=== PATIENT | female | born 1970 | race Caucasian/White ===

== ENCOUNTER 2017-03-27 11:33 | Observation (INO) | payer OTHER, MEDICARE ==
[~2017-03-27] VITALS: Ht 162.6 cm; Wt 81.6 kg
[~2017-03-27 11:33] MED LIST: ACET-1079 PO; CALC500C3 PO; ERGO2000 PO; FERR-7 PO; MAGN400T23 PO; MET10T PO; NOR10T PO; SODB650T PO; ZINC50TA2 PO
[2017-03-27 12:24] LABS: Basophils # (auto) 0 uL; Basophils % (auto) 0.3 % (0.0-2.0); CONDITION Y; DEFINITIVE SEE PRINTOUT; Eosinophils # (auto) 0.1 uL; Eosinophils % (auto) 0.9 % (0.0-7.0); Hematocrit 25.4 % (36.0-46.0); Hemoglobin 7.9 g/dL (12.2-16.2); Lymphocytes # (auto) 1.6 uL; Lymphocytes % (auto) 14.7 % (10.0-50.0); Mean Corpuscular Hemoglobin 27.5 pg (28.0-32.0); Mean Corpuscular Hgb Conc. 31.1 g/dL (32.0-36.0); Mean Corpuscular Volume 88.4 fL (80.0-100.0); Mean Platelet Volume 6.2 fL (7.4-10.4); Monocytes # (auto) 1.1 uL; Monocytes % (auto) 9.7 % (0.0-12.0); Neutrophils # (auto) 8.2 uL; Neutrophils % (auto) 74.4 % (37.0-80.0); Platelet Count (auto) 726 10^3/uL (140-450); Red Cell Distribution Width 18.5 % (11.6-16.0)
[2017-03-27 12:43] LABS: Albumin 1.5 g/dL (3.4-5.0); Anion Gap 16 (5-15); Aspartate Aminotransferase 10 U/L (15-37); BUN/Creatinine Ratio 16.9; Blood Urea Nitrogen 66 mg/dL (7-18); Calcium 6.9 mg/dL (8.5-10.1); Chloride 117 mmol/L (98-107); GFR African American 16 mL/min; GFR Non-African American 13 mL/min; Glucose 84 mg/dL (74-106); Potassium 4.2 mmol/L (3.5-5.1); Sodium 140 mmol/L (136-145)
[2017-03-27 12:48] LABS: Alkaline Phosphatase 167 U/L (45-117); Bilirubin, Total 0.2 mg/dL (0.2-1.0); Total Protein 6.3 g/dL (6.4-8.2)
[2017-03-27 13:09] LABS: Carbon Dioxide 7 mmol/L (21-32)
[2017-03-27] MEDS ORDERED: SODIUM CHLORIDE 0.9% 1,000 ML IVB ONE (13:39)
[2017-03-27] MEDS ORDERED: HYDROmorphone HCL 2 MG/ML VL IV ONE (13:45)
[2017-03-27] MEDS ORDERED: ONDANSETRON HCL 4 MG/2 ML VIAL IV ONE (13:45)
[2017-03-27] MEDS ORDERED: cefTRIAXone 1GM/50ML D5W 50 ML IV ONE (13:45)
[2017-03-27 14:17] LABS: INR 1.09 (0.9-1.15); Partial Thromboplastin Time 36.6 sec (22.64-33.71); Prothrombin Time 11.9 sec (9.37-12.3)
[2017-03-27 14:34] LABS: Urine Bilirubin Negative (Negative); Urine Blood Negative /uL (Negative); Urine Color Yellow (Yellow); Urine Glucose Normal (Normal); Urine Ketone Negative (Negative); Urine Nitrite Negative (Negative); Urine RBC 3 /hpf (0 - 4); Urine Squamous Epithelial Cell FEW /hpf (<5); Urine Urobilinogen Normal (Negative); Urine pH 8.5 (5.0-8.0)
[2017-03-27] MEDS ORDERED: SODIUM CHLORIDE 0.9% 1,000 ML IV ONE (16:30)
[2017-03-27 19:44] VITALS: BP 100/48
[2017-03-27] MEDS ORDERED: HYDROcodone-ACET 10/325MG TAB PO ONE (20:15)
== END 2017-03-27 20:11 | disposition home or self-care (01) | DRG 592 ==
LOC: EDBD 11:33 → ER 11:39 → OVERFLOW 13:43 → ER 20:11
PROVIDERS: ADMIT Family Medicine; ATTEND Family Medicine
DX: L89.324 Pressure ulcer of left buttock, stage 4 (principal); N17.9 Acute kidney failure, unspecified; E11.22 Type 2 diabetes mellitus with diabetic chronic kidney disease; M86.9 Osteomyelitis, unspecified; E83.42 Hypomagnesemia; N39.0 Urinary tract infection, site not specified; L89.314 Pressure ulcer of right buttock, stage 4; L89.154 Pressure ulcer of sacral region, stage 4; D64.9 Anemia, unspecified; I12.9 Hypertensive chronic kidney disease with stage 1 through stage 4 chronic kidney disease, or unspecified chronic kidney disease; N18.9 Chronic kidney disease, unspecified; F32.9 Major depressive disorder, single episode, unspecified; F41.9 Anxiety disorder, unspecified; M47.9 Spondylosis, unspecified; M48.06 Spinal stenosis, lumbar region; Q05.9 Spina bifida, unspecified; Z93.6 Other artificial openings of urinary tract status; Z82.49 Family history of ischemic heart disease and other diseases of the circulatory system; Z83.3 Family history of diabetes mellitus; Z93.3 Colostomy status; Z99.3 Dependence on wheelchair; Z74.01 Bed confinement status
CPT/HCPCS: 36415; 71010; 72131; 80053; 81001; 82962; 83605; 83735; 84484; 85025; 85610; 85730; 87040; 87077; 87086; 87088; 87186; 93005; 96361; 96365; 96375; 99285; G0378; J0696; J1170; J2405

== ENCOUNTER 2017-07-20 11:40 | Inpatient (IN) | payer OTHER, MEDICARE, MEDICAID ==
[~2017-07-20] VITALS: Ht 152.4 cm; Wt 116.3 kg
[2017-07-20] MEDS ORDERED: SODIUM CHLORIDE 0.9% 1,000 ML IV ONE ×3 (14:27→23:00)
[2017-07-20] MEDS ORDERED: ONDANSETRON HCL 4 MG/2 ML VIAL IV ONE (14:30)
[2017-07-20 15:48] LABS: Albumin 1.1 g/dL (3.4-5.0); Alkaline Phosphatase 235 U/L (45-117); Anion Gap 16 (5-15); Aspartate Aminotransferase 14 U/L (15-37); Bilirubin, Total 0.3 mg/dL (0.2-1.0); Carbon Dioxide 14 mmol/L (21-32); Chloride 99 mmol/L (98-107); GFR African American 10 mL/min; GFR Non-African American 8 mL/min; Glucose 84 mg/dL (74-106); Sodium 129 mmol/L (136-145); Total Protein 5.8 g/dL (6.4-8.2)
[2017-07-20 15:53] LABS: Blood Urea Nitrogen 97 mg/dL (7-18); Calcium 5.5 mg/dL (8.5-10.1)
[2017-07-20] MEDS ORDERED: CALCIUM CHL 100MG/ML 1,000 MG in D5W 5% 100 ML IV ONE (16:00)
[2017-07-20] MEDS ORDERED: SODIUM BICARBONATE 8.4 % INJ 50ML VIAL IV ONE (16:00)
[2017-07-20] MEDS ORDERED: MEPERIDINE HCL (50 MG/ML) 1 ML VIAL IV ONE (17:00)
[2017-07-20 18:39] LABS: Basophils # (auto) 0 uL; Basophils % (auto) 0.4 % (0.0-2.0); Eosinophils # (auto) 0 uL; Eosinophils % (auto) 0.2 % (0.0-7.0); Hematocrit 24.3 % (36.0-46.0); Hemoglobin 7.1 g/dL (12.2-16.2); Lymphocytes # (auto) 1.5 uL; Lymphocytes % (auto) 10.8 % (10.0-50.0); Mean Corpuscular Hemoglobin 28.3 pg (28.0-32.0); Mean Corpuscular Hgb Conc. 29.1 g/dL (32.0-36.0); Mean Corpuscular Volume 97.2 fL (80.0-100.0); Monocytes # (auto) 0.4 uL; Monocytes % (auto) 2.9 % (0.0-12.0); Neutrophils # (auto) 11.5 uL; Neutrophils % (auto) 85.7 % (37.0-80.0); Nucleated Red Blood Cells % 0.2 %; Platelet Count (auto) 174 10^3/uL (140-450); Red Cell Distribution Width 16.7 % (11.8-14.3); White Blood Cell 13.4 10^3/uL (4.4-10.8)
[2017-07-20 20:30] LABS: BUN/Creatinine Ratio 15.4; Calcium 6.1 mg/dL (8.5-10.1); Potassium 5.5 mmol/L (3.5-5.1)
[2017-07-20 21:07] LABS: Anisocytosis Moderate; Ovalocytes FEW; Platelet Estimate Adequate
[2017-07-20 21:08] LABS: Tear Drop Cells FEW
[2017-07-20] MEDS ORDERED: NOREPINEPHRINE 8 MG/250ML KIT 250 ML IV ONE (21:56)
[2017-07-20] MEDS: NOREPINEPHRINE 8 MG/250ML KIT 250 ML IV SCH (22:11)
[2017-07-20] MEDS ORDERED: SODIUM POLYSTYRENE SULF 15GM/60ML SUSP PO ONE (22:45)
[2017-07-21 00:42] LABS: Urine Bilirubin Negative (Negative); Urine Blood TRACE /uL (Negative); Urine Color Yellow (Yellow); Urine Glucose Normal (Normal); Urine Hyaline Cast FEW /lpf (0 - 2); Urine Ketone Negative (Negative); Urine Mucus FEW (None Seen); Urine Nitrite Negative (Negative); Urine RBC 38 /hpf (0 - 4); Urine Squamous Epithelial Cell FEW /hpf (<5); Urine Urobilinogen Normal (Negative)
[2017-07-21 00:58] LABS: Temperature: 21.9 C (20.0-25.0)
[2017-07-21] MEDS ORDERED: SODIUM CHLORIDE 0.9% 1,000 ML IV ONE (02:00)
[2017-07-21] MEDS ORDERED: ACETAMINOPHEN 325 MG TAB PO ONE (03:30)
[2017-07-21] MEDS ORDERED: MORPHINE SULF INJ 2 MG/ML SYRINGE 1ML IV PRN (04:00)
[2017-07-21] MEDS ORDERED: NITROGLYCERIN 0.4 MG SL TAB SL PRN (04:00)
[2017-07-21] MEDS ORDERED: LINEZOLID 600MG/300ML 300 ML IV ONE ×2 (04:55→05:15)
[2017-07-21] MEDS ORDERED: NALBUPHINE HCL 10 MG/1ml INJECTION ONE (05:12)
[2017-07-21] MEDS ORDERED: NALBUPHINE HCL 10 MG/1ml INJECTION IV ONE ×2 (05:15→05:45)
[2017-07-21] MEDS ORDERED: HYDROcodone-ACET 5/325MG TAB PO PRN (05:15)
[2017-07-21] MEDS ORDERED: ONDANSETRON HCL 4 MG/2 ML VIAL ONE (05:30)
[2017-07-21] MEDS ORDERED: NOREPINEPHRINE 8 MG/250ML KIT 250 ML IV ONE (05:35)
[2017-07-21] MEDS ORDERED: LORazepam 2MG/ML-1ML VIAL IV ONE ×2 (05:45→07:00)
[2017-07-21] MEDS ORDERED: ACETAMINOPHEN 325 MG TAB PO PRN (05:45)
[2017-07-21] MEDS ORDERED: ONDANSETRON HCL 4 MG/2 ML VIAL IV ONE (05:45)
[2017-07-21] MEDS ORDERED: LORazepam 2MG/ML-1ML VIAL ONE (06:01)
[2017-07-21] MEDS ORDERED: ETOMIDATE (2MG/ML) 20ML VIAL IV ONE ×2 (06:07→07:15)
[2017-07-21 06:56] VITALS: BP 79/58
[2017-07-21 07:11] VITALS: BP 102/51
[2017-07-21] MEDS: LEVOTHYROXINE SODIUM 88 MCG TAB PO SCH (07:15)
[2017-07-21 08:51] VITALS: BP 95/60
[2017-07-21] MEDS: LINEZOLID 600MG/300ML 300 ML IV SCH ×2 (08:55→22:00)
[2017-07-21 09:34] LABS: Hematocrit 27.8 % (36.0-46.0); Hemoglobin 8.4 g/dL (12.2-16.2); Mean Corpuscular Hgb Conc. 30.3 g/dL (32.0-36.0); Mean Corpuscular Volume 92.4 fL (80.0-100.0); Mean Platelet Volume 7.1 fL (6.9-10.8); Platelet Count (auto) 334 10^3/uL (140-450); Red Cell Distribution Width 16.2 % (11.8-14.3); White Blood Cell 28.3 10^3/uL (4.4-10.8)
[2017-07-21 09:45] LABS: Metamyelocytes % 0; Myelocytes % 0; Promyelocytes % 0; Reactive Lymphocytes 0
[2017-07-21 09:58] LABS: Albumin 1.1 g/dL (3.4-5.0); BUN/Creatinine Ratio 16.6; Bilirubin, Total 0.4 mg/dL (0.2-1.0); Total Protein 5.5 g/dL (6.4-8.2)
[2017-07-21 10:05] LABS: Calcium 5.9 mg/dL (8.5-10.1)
[2017-07-21 10:08] LABS: Potassium 5.6 mmol/L (3.5-5.1)
[2017-07-21 11:09] LABS: Anisocytosis Slight; Platelet Estimate Adequate
[2017-07-21 11:10] LABS: Hypochromia Slight; Poikilocytosis Slight
[2017-07-21] MEDS ORDERED: SODIUM BICARBONATE 8.4 % INJ 50ML VIAL IV ONE ×2 (11:17→19:16)
[2017-07-21] MEDS: SODIUM BICARBONATE 50ML VIAL 50 ML in D5W/SOD CHL 0.45% 1,000 ML IV SCH ×2 (11:38→19:24)
[2017-07-21] MEDS: MAGNESIUM SULFATE 1GM/100ML 100 ML IV SCH (11:42)
[2017-07-21] MEDS: HYDROmorphone HCL 2 MG TAB PO PRN ×2 (12:20→18:30)
[2017-07-21] MEDS: ALBUMIN 25% 100 ML IV SCH ×2 (14:20→22:00)
[2017-07-21] MEDS: SODIUM CHLORIDE 0.9% 1,000 ML IV SCH (20:30)
[2017-07-21 21:04] LABS: Eosinophils # (auto) 0 uL; Eosinophils % (auto) 0.3 % (0.0-7.0); Lymphocytes # (auto) 1.8 uL; Lymphocytes % (auto) 12.4 % (10.0-50.0); Monocytes # (auto) 0.5 uL
[2017-07-21 21:06] LABS: Basophils # (auto) 0 uL; Basophils % (auto) 0.2 % (0.0-2.0); Hematocrit 20.9 % (36.0-46.0); Mean Corpuscular Hgb Conc. 31.9 g/dL (32.0-36.0); Mean Corpuscular Volume 90.7 fL (80.0-100.0); Mean Platelet Volume 6.8 fL (6.9-10.8); Monocytes % (auto) 3.3 % (0.0-12.0); Neutrophils # (auto) 12.1 uL; Neutrophils % (auto) 83.8 % (37.0-80.0); Nucleated Red Blood Cells % 0.1 %; Platelet Count (auto) 177 10^3/uL (140-450); White Blood Cell 14.5 10^3/uL (4.4-10.8)
[2017-07-21] MEDS ORDERED: DEXTROSE (50%) 50ML SYRG IV PRN (21:15)
[2017-07-21 21:24] LABS: Lactic Acid w/Reflex 3.6 mmol/L (0.4-2.0)
[2017-07-21 21:25] LABS: BUN/Creatinine Ratio 16.2; Calcium 6.1 mg/dL (8.5-10.1); Potassium 4.3 mmol/L (3.5-5.1)
[2017-07-21 21:39] LABS: Hemoglobin 6.7 g/dL (12.2-16.2)
[2017-07-21 21:44] LABS: REFLEX LACTIC ACID YES OR NO YES
[2017-07-21 21:45] LABS: Platelet Estimate Adequate
[2017-07-21 21:46] LABS: Anisocytosis Moderate; Burr Cells FEW; Hypochromia Moderate; Ovalocytes FEW; Tear Drop Cells FEW
[2017-07-21] MEDS: NOREPINEPHRINE 8 MG/250ML KIT 250 ML IV SCH (21:58)
[2017-07-22 00:20] VITALS: BP 105/56
[2017-07-22 00:35] VITALS: BP 108/59
[2017-07-22 02:45] VITALS: BP 100/56
[2017-07-22 03:08] VITALS: BP 79/51
[2017-07-22] MEDS ORDERED: SODIUM BICARBONATE 8.4 % INJ 50ML VIAL IV ONE ×2 (03:10→21:15)
[2017-07-22 03:27] VITALS: BP 98/46
[2017-07-22] MEDS: SODIUM BICARBONATE 50ML VIAL 50 ML in D5W/SOD CHL 0.45% 1,000 ML IV SCH ×3 (03:48→20:36)
[2017-07-22 05:08] VITALS: BP 100/57
[2017-07-22] MEDS: ALBUMIN 25% 100 ML IV SCH ×3 (06:00→22:33)
[2017-07-22] MEDS: ACCU-CHEK COMFORT CURVE STRIP VI SCH ×4 (06:00→18:02)
[2017-07-22] MEDS: SODIUM CHLORIDE 0.9% 1,000 ML IV SCH ×2 (06:41→16:31)
[2017-07-22] MEDS: InsuLIN REG 1unit/0.01ml Soln (100units/ml) SC SCH ×4 (06:52→18:02)
[2017-07-22] MEDS: LEVOTHYROXINE SODIUM 88 MCG TAB PO SCH ×2 (07:30→08:05)
[2017-07-22 09:45] LABS: Basophils # (auto) 0 uL; Basophils % (auto) 0.1 % (0.0-2.0); Eosinophils # (auto) 0.1 uL; Eosinophils % (auto) 0.5 % (0.0-7.0); Hematocrit 27.8 % (36.0-46.0); Hemoglobin 8.9 g/dL (12.2-16.2); Lymphocytes # (auto) 2.2 uL; Lymphocytes % (auto) 13.6 % (10.0-50.0); Mean Corpuscular Hemoglobin 28.9 pg (28.0-32.0); Mean Corpuscular Hgb Conc. 32.2 g/dL (32.0-36.0); Mean Corpuscular Volume 89.6 fL (80.0-100.0); Mean Platelet Volume 6.7 fL (6.9-10.8); Monocytes # (auto) 0.5 uL; Monocytes % (auto) 2.9 % (0.0-12.0); Neutrophils # (auto) 13.3 uL; Neutrophils % (auto) 82.9 % (37.0-80.0); Platelet Count (auto) 140 10^3/uL (140-450); White Blood Cell 16.1 10^3/uL (4.4-10.8)
[2017-07-22] MEDS: MAGNESIUM SULFATE 1GM/100ML 100 ML IV SCH (09:55)
[2017-07-22] MEDS: LINEZOLID 600MG/300ML 300 ML IV SCH ×2 (09:55→22:33)
[2017-07-22 10:11] LABS: Albumin 2.2 g/dL (3.4-5.0); BUN/Creatinine Ratio 16.3; Bilirubin, Total 1.4 mg/dL (0.2-1.0); Total Protein 5.2 g/dL (6.4-8.2)
[2017-07-22 10:27] LABS: Calcium 5.8 mg/dL (8.5-10.1)
[2017-07-22] MEDS ORDERED: cefTRIAXone 1GM/10ml IVPUSH 10 ML IV ONE (10:45)
[2017-07-22] MEDS ORDERED: CALCIUM GLUC 4.65meq/50ml D5AE 50 ML IV ONE (10:45)
[2017-07-22] MEDS: Boost Glucose Control 8 Ounces PO SCH ×3 (12:00→22:00)
[2017-07-22] MEDS: HYDROmorphone HCL 2 MG TAB PO PRN ×2 (13:00→20:19)
[2017-07-22] MEDS ORDERED: SODIUM BICARBONATE 8.4% INJ 50ML SYRINGE ONE (14:54)
[2017-07-22] MEDS ORDERED: SODIUM CHLORIDE 0.9% 1,000 ML IV ONE (18:15)
[2017-07-22 20:24] LABS: Allen Test Yes; Base Excess -14.5 mmol/L (-2.0-2.0); Blood 02Sat 96.3 % (96-100); Blood COHb 0.3 % (0.5-1.5); Blood MetHb 0.3 % (0.0-1.5); HCO3 10.1 mmol/L (22-26.0); HHb 3.7 % (0.0-5.0); MODE ROOM AIR; O2Hb 95.7 % (94.0-97.0); PCO2 21.1 mmHg (35.0-45.0); PCO2(T) 20.8 mmHg (35.0-45.0); PO2 99.9 mmHg (80.0-100.0); PO2(T) 98.1 mmHg (80.0-100.0); Room 1015-ERT; Sample Type Arterial; pH 7.297 (7.350-7.450)
[2017-07-22] MEDS: NOREPINEPHRINE 8 MG/250ML KIT 250 ML IV SCH (21:01)
[2017-07-22 21:22] LABS: Albumin 2.2 g/dL (3.4-5.0); BUN/Creatinine Ratio 16.4; Potassium 3.7 mmol/L (3.5-5.1)
[2017-07-22 21:24] LABS: Bilirubin, Total 0.6 mg/dL (0.2-1.0); Total Protein 5.1 g/dL (6.4-8.2)
[2017-07-23] MEDS: InsuLIN REG 1unit/0.01ml Soln (100units/ml) SC SCH ×4 (00:03→17:48)
[2017-07-23] MEDS: ACCU-CHEK COMFORT CURVE STRIP VI SCH ×4 (00:03→16:49)
[2017-07-23] MEDS: NOREPINEPHRINE 8 MG/250ML KIT 250 ML IV SCH ×3 (01:40→21:44)
[2017-07-23] MEDS ORDERED: SODIUM BICARBONATE 8.4% INJ 50ML SYRINGE ONE (01:50)
[2017-07-23] MEDS: ONDANSETRON HCL 4 MG/2 ML VIAL IV PRN ×5 (02:08→20:50)
[2017-07-23] MEDS: SODIUM BICARBONATE 50ML VIAL 50 ML in D5W/SOD CHL 0.45% 1,000 ML IV SCH ×3 (02:09→20:59)
[2017-07-23] MEDS: SODIUM CHLORIDE 0.9% 1,000 ML IV SCH ×3 (02:45→21:30)
[2017-07-23 02:50] LABS: Magnesium 1.5 mg/dL (1.6-2.6)
[2017-07-23] MEDS ORDERED: ENOXAPARIN SOD 100 MG/1 ML SYRINGE SC ONE ×2 (03:30→06:45)
[2017-07-23 05:10] LABS: Basophils # (auto) 0 uL; Basophils % (auto) 0.2 % (0.0-2.0); Eosinophils # (auto) 0.1 uL; Eosinophils % (auto) 0.4 % (0.0-7.0); Hematocrit 29.1 % (36.0-46.0); Hemoglobin 9.4 g/dL (12.2-16.2); Lymphocytes # (auto) 1.5 uL; Lymphocytes % (auto) 8.6 % (10.0-50.0); Mean Corpuscular Hemoglobin 28.8 pg (28.0-32.0); Mean Corpuscular Hgb Conc. 32.2 g/dL (32.0-36.0); Mean Corpuscular Volume 89.4 fL (80.0-100.0); Mean Platelet Volume 7.3 fL (6.9-10.8); Monocytes # (auto) 0.7 uL; Monocytes % (auto) 3.7 % (0.0-12.0); Neutrophils # (auto) 15.4 uL; Neutrophils % (auto) 87.1 % (37.0-80.0); Nucleated Red Blood Cells % 0.1 %; Platelet Count (auto) 115 10^3/uL (140-450); Red Cell Distribution Width 16.6 % (11.8-14.3); White Blood Cell 17.6 10^3/uL (4.4-10.8)
[2017-07-23] MEDS: HYDROmorphone HCL 2 MG TAB PO PRN (05:20)
[2017-07-23 05:31] LABS: Albumin 2.6 g/dL (3.4-5.0); BUN/Creatinine Ratio 17.5; Bilirubin, Total 0.8 mg/dL (0.2-1.0); Calcium 6.2 mg/dL (8.5-10.1); Potassium 3.4 mmol/L (3.5-5.1); Total Protein 5.2 g/dL (6.4-8.2)
[2017-07-23] MEDS: Boost Glucose Control 8 Ounces PO SCH ×4 (06:00→21:44)
[2017-07-23] MEDS: ALBUMIN 25% 100 ML IV SCH (06:28)
[2017-07-23] MEDS: LEVOTHYROXINE SODIUM 88 MCG TAB PO SCH (08:00)
[2017-07-23] MEDS: cefTRIAXone 1GM/10ml IVPUSH 10 ML IV SCH (09:22)
[2017-07-23] MEDS: MAGNESIUM SULFATE 1GM/100ML 100 ML IV SCH ×3 (10:00→14:45)
[2017-07-23] MEDS ORDERED: POTASSIUM CHL 20MEQ/50ML 50 ML IV SCH (11:15)
[2017-07-23] MEDS: LINEZOLID 600MG/300ML 300 ML IV SCH ×2 (12:00→21:43)
[2017-07-23] MEDS: ASPirin-EC 81 mg tab PO SCH (12:00)
[2017-07-23] MEDS ORDERED: POTASSIUM CHL 20 Meq TABLET PO ONE (12:15)
[2017-07-23] MEDS ORDERED: POTASSIUM CHL 20MEQ/50ML 50 ML IV ONE (12:30)
[2017-07-23] MEDS: CALCIUM ACETATE 667 MG CAP PO SCH (18:16)
[2017-07-23] MEDS ORDERED: ALPRAZolam 0.5 MG TAB PO ONE (21:45)
[2017-07-23] MEDS: METOCLOPRAMIDE HCL 5MG/ml INJ 2ml VIAL IV PRN (21:59)
[2017-07-24] MEDS: InsuLIN REG 1unit/0.01ml Soln (100units/ml) SC SCH ×4 (00:30→18:48)
[2017-07-24] MEDS: NOREPINEPHRINE 8 MG/250ML KIT 250 ML IV SCH ×2 (02:39→14:52)
[2017-07-24] MEDS: ACCU-CHEK COMFORT CURVE STRIP VI SCH ×4 (05:44→18:41)
[2017-07-24] MEDS: Boost Glucose Control 8 Ounces PO SCH ×4 (06:00→21:34)
[2017-07-24] MEDS: SODIUM BICARBONATE 50ML VIAL 50 ML in D5W/SOD CHL 0.45% 1,000 ML IV SCH ×3 (06:02→21:33)
[2017-07-24] MEDS: ALPRAZolam 0.5 MG TAB PO PRN ×2 (06:03→22:27)
[2017-07-24] MEDS: METOCLOPRAMIDE HCL 5MG/ml INJ 2ml VIAL IV PRN (06:03)
[2017-07-24 06:25] LABS: Basophils # (auto) 0 uL; Basophils % (auto) 0.3 % (0.0-2.0); Eosinophils # (auto) 0.1 uL; Eosinophils % (auto) 0.6 % (0.0-7.0); Hematocrit 29.2 % (36.0-46.0); Hemoglobin 9.3 g/dL (12.2-16.2); Lymphocytes % (auto) 14.7 % (10.0-50.0); Mean Corpuscular Hemoglobin 28.8 pg (28.0-32.0); Mean Corpuscular Volume 90.1 fL (80.0-100.0); Mean Platelet Volume 7.9 fL (6.9-10.8); Monocytes # (auto) 0.6 uL; Monocytes % (auto) 4.5 % (0.0-12.0); Neutrophils # (auto) 10.7 uL; Neutrophils % (auto) 79.9 % (37.0-80.0); Platelet Count (auto) 69 10^3/uL (140-450); Red Cell Distribution Width 16.5 % (11.8-14.3); White Blood Cell 13.4 10^3/uL (4.4-10.8)
[2017-07-24] MEDS: LEVOTHYROXINE SODIUM 88 MCG TAB PO SCH (06:50)
[2017-07-24 06:57] LABS: Albumin 2.2 g/dL (3.4-5.0); BUN/Creatinine Ratio 16.3; Bilirubin, Total 0.8 mg/dL (0.2-1.0); Calcium 6.8 mg/dL (8.5-10.1); Magnesium 1.7 mg/dL (1.6-2.6); Potassium 3.1 mmol/L (3.5-5.1); Total Protein 4.6 g/dL (6.4-8.2); Uric Acid 6.5 mg/dL (2.6-6.0)
[2017-07-24] MEDS: HYDROcodone-ACET 5/325MG TAB PO PRN ×2 (07:32→14:52)
[2017-07-24] MEDS: CALCIUM ACETATE 667 MG CAP PO SCH ×3 (08:46→18:00)
[2017-07-24] MEDS: SODIUM CHLORIDE 0.9% 1,000 ML IV SCH ×2 (08:46→20:14)
[2017-07-24] MEDS: cefTRIAXone 1GM/10ml IVPUSH 10 ML IV SCH (08:47)
[2017-07-24] MEDS: MAGNESIUM SULFATE 1GM/100ML 100 ML IV SCH ×3 (08:54→13:24)
[2017-07-24] MEDS: LINEZOLID 600MG/300ML 300 ML IV SCH ×2 (10:05→21:58)
[2017-07-24] MEDS: ASPirin-EC 81 mg tab PO SCH (10:05)
[2017-07-24] MEDS ORDERED: POTASSIUM CHL 20 Meq TABLET PO ONE ×2 (12:00→21:45)
[2017-07-24] MEDS: HYDROmorphone HCL 2 MG TAB PO PRN (12:29)
[2017-07-24] MEDS ORDERED: POTASSIUM CHLORIDE 40 MEQ, LIDOCAINE 1% (LOCAL ANESTH.) 4 ML in SODIUM CHL 0.9% 250 ML IV ONE (14:00)
[2017-07-24] MEDS ORDERED: SODIUM CHLORIDE 0.9% 250 ML IV ONE (17:00)
[2017-07-24] MEDS: SODIUM CHLORIDE 0.9% 250 ML IV SCH ×7 (17:17→21:30)
[2017-07-24] MEDS ORDERED: SODIUM BICARBONATE 8.4 % INJ 50ML VIAL IV ONE (20:54)
[2017-07-24] MEDS: NYSTATIN TOPICAL POWDER 15GM TOP SCH (22:27)
[2017-07-25] MEDS: ACCU-CHEK COMFORT CURVE STRIP VI SCH ×5 (00:15→23:45)
[2017-07-25] MEDS: InsuLIN REG 1unit/0.01ml Soln (100units/ml) SC SCH ×5 (00:21→23:46)
[2017-07-25] MEDS: HYDROmorphone HCL 2 MG TAB PO PRN ×2 (00:21→04:26)
[2017-07-25] MEDS ORDERED: ONDANSETRON HCL 4 MG/2 ML VIAL ONE (03:26)
[2017-07-25] MEDS: SODIUM CHLORIDE 0.9% 1,000 ML IV SCH ×4 (03:38→22:41)
[2017-07-25] MEDS ORDERED: SODIUM BICARBONATE 8.4 % INJ 50ML VIAL IV ONE (03:48)
[2017-07-25] MEDS: HYDROcodone-ACET 5/325MG TAB PO PRN (04:23)
[2017-07-25 04:44] LABS: Basophils # (auto) 0.1 uL; Eosinophils # (auto) 0.2 uL; Monocytes # (auto) 0.7 uL; Monocytes % (auto) 4.6 % (0.0-12.0)
[2017-07-25 04:47] LABS: Basophils % (auto) 0.3 % (0.0-2.0); Hematocrit 30.3 % (36.0-46.0); Hemoglobin 9.6 g/dL (12.2-16.2); Lymphocytes # (auto) 2.4 uL; Mean Corpuscular Hemoglobin 28.7 pg (28.0-32.0); Mean Corpuscular Hgb Conc. 31.8 g/dL (32.0-36.0); Mean Corpuscular Volume 90.1 fL (80.0-100.0); Neutrophils # (auto) 12.6 uL; Neutrophils % (auto) 79.1 % (37.0-80.0); Platelet Count (auto) 32 10^3/uL (140-450); Red Cell Distribution Width 16.4 % (11.8-14.3); White Blood Cell 15.9 10^3/uL (4.4-10.8)
[2017-07-25 05:00] LABS: BUN/Creatinine Ratio 15.8; Calcium 6.9 mg/dL (8.5-10.1); Potassium 3.7 mmol/L (3.5-5.1)
[2017-07-25] MEDS ORDERED: TEMAZEPAM 15 MG CAP PO ONE (05:30)
[2017-07-25] MEDS: Boost Glucose Control 8 Ounces PO SCH ×4 (06:00→22:00)
[2017-07-25] MEDS: SODIUM BICARBONATE 50ML VIAL 50 ML in D5W/SOD CHL 0.45% 1,000 ML IV SCH (06:07)
[2017-07-25] MEDS: LEVOTHYROXINE SODIUM 88 MCG TAB PO SCH (06:51)
[2017-07-25] MEDS ORDERED: POTA20TA53 PO (08:37)
[2017-07-25] MEDS ORDERED: HYDR2TAB29 PO (08:38)
[2017-07-25] MEDS ORDERED: ONDA4TAB5 PO (08:38)
[2017-07-25] MEDS: METOCLOPRAMIDE HCL 5MG/ml INJ 2ml VIAL IV PRN ×3 (08:45→23:36)
[2017-07-25] MEDS: cefTRIAXone 1GM/10ml IVPUSH 10 ML IV SCH (08:58)
[2017-07-25] MEDS: ALPRAZolam 0.5 MG TAB PO PRN (09:21)
[2017-07-25] MEDS: CALCIUM ACETATE 667 MG CAP PO SCH ×3 (09:21→18:19)
[2017-07-25] MEDS: MAGNESIUM SULFATE 1GM/100ML 100 ML IV SCH (10:28)
[2017-07-25] MEDS: LINEZOLID 600MG/300ML 300 ML IV SCH ×2 (11:10→22:00)
[2017-07-25] MEDS: ASPirin-EC 81 mg tab PO SCH (11:15)
[2017-07-25] MEDS: POTASSIUM CHL 20 Meq TABLET PO SCH (11:15)
[2017-07-25] MEDS: NYSTATIN TOPICAL POWDER 15GM TOP SCH ×2 (11:16→22:00)
[2017-07-25] MEDS: ALBUMIN 25% 100 ML IV SCH ×4 (11:38→22:59)
[2017-07-25] MEDS ORDERED: POTASSIUM CHL 20 Meq TABLET PO ONE (13:00)
[2017-07-25 14:06] LABS: Vitamin D 25-Hydroxy 7.2 ng/mL (.); Vitamin D-2 25-Hydroxy 3.8 ng/mL (.)
[2017-07-25] MEDS ORDERED: ALBUMIN 25% 100 ML IV SCH (17:00)
[2017-07-25] MEDS: MEROPENEM 1GM IVPB 100 ML IV SCH (18:19)
[2017-07-25] MEDS: NOREPINEPHRINE 8 MG/250ML KIT 250 ML IV SCH (21:59)
[2017-07-26 04:06] LABS: Basophils # (auto) 0.1 uL; Eosinophils # (auto) 0.1 uL; Eosinophils % (auto) 1.3 % (0.0-7.0); Hemoglobin 7.4 g/dL (12.2-16.2); Monocytes # (auto) 0.3 uL
[2017-07-26 04:09] LABS: Basophils % (auto) 0.8 % (0.0-2.0); Hematocrit 22.7 % (36.0-46.0); Lymphocytes # (auto) 1.6 uL; Lymphocytes % (auto) 16.3 % (10.0-50.0); Mean Corpuscular Hemoglobin 29.3 pg (28.0-32.0); Mean Corpuscular Hgb Conc. 32.4 g/dL (32.0-36.0); Mean Corpuscular Volume 90.3 fL (80.0-100.0); Mean Platelet Volume 8.9 fL (6.9-10.8); Monocytes % (auto) 2.7 % (0.0-12.0); Neutrophils # (auto) 7.8 uL; Neutrophils % (auto) 78.9 % (37.0-80.0); White Blood Cell 9.9 10^3/uL (4.4-10.8)
[2017-07-26] MEDS ORDERED: VASOPRESSIN 20 UNIT/ML ONE ×2 (04:09→04:13)
[2017-07-26 04:34] LABS: Platelet Count (auto) 14 10^3/uL (140-450)
[2017-07-26 04:36] LABS: Magnesium 2.1 mg/dL (1.6-2.6); Phosphorus 4.4 mg/dL (2.5-4.90)
[2017-07-26] MEDS: VASOPRESSIN 50 UNITS in SODIUM CHL 0.9% 247.5 ML IV SCH ×2 (04:43→08:34)
[2017-07-26] MEDS: MEROPENEM 1GM IVPB 100 ML IV SCH ×2 (04:44→17:40)
[2017-07-26] MEDS: Boost Glucose Control 8 Ounces PO SCH ×3 (04:44→18:00)
[2017-07-26 04:54] LABS: Albumin 3.2 g/dL (3.4-5.0); BUN/Creatinine Ratio 15.5; Bilirubin, Total 1.2 mg/dL (0.2-1.0); Calcium 7.2 mg/dL (8.5-10.1); Potassium 4.4 mmol/L (3.5-5.1); Total Protein 4.9 g/dL (6.4-8.2)
[2017-07-26] MEDS: SODIUM CHLORIDE 0.9% 1,000 ML IV SCH ×2 (05:39→11:05)
[2017-07-26] MEDS: ASPirin-EC 81 mg tab PO SCH (05:41)
[2017-07-26] MEDS: HYDROmorphone HCL 2 MG TAB PO PRN ×2 (05:53→11:47)
[2017-07-26] MEDS: ALPRAZolam 0.5 MG TAB PO PRN ×2 (05:53→13:45)
[2017-07-26] MEDS: ACCU-CHEK COMFORT CURVE STRIP VI SCH ×3 (05:58→18:17)
[2017-07-26] MEDS: InsuLIN REG 1unit/0.01ml Soln (100units/ml) SC SCH ×3 (05:59→18:17)
[2017-07-26] MEDS: ALBUMIN 25% 100 ML IV SCH ×4 (05:59→16:01)
[2017-07-26] MEDS ORDERED: PANTOPRAZOLE 40 MG/10 ML VIAL IV ONE (06:45)
[2017-07-26] MEDS: LEVOTHYROXINE SODIUM 88 MCG TAB PO SCH (08:08)
[2017-07-26 08:12] LABS: INR 1.76 (0.9-1.15); Prothrombin Time 19.3 sec (9.37-12.3)
[2017-07-26 08:35] LABS: Partial Thromboplastin Time 121.6 sec (22.64-33.71)
[2017-07-26] MEDS: CALCIUM ACETATE 667 MG CAP PO SCH ×3 (09:17→18:00)
[2017-07-26] MEDS: HYDROcodone-ACET 5/325MG TAB PO PRN (09:29)
[2017-07-26 09:50] VITALS: BP 85/53
[2017-07-26] MEDS ORDERED: PANTOPRAZOLE 40 MG/10 ML VIAL IV SCH (10:00)
[2017-07-26] MEDS ORDERED: CHOLECALCIFEROL (VITD3) 1,000 UNIT TAB PO SCH (10:00)
[2017-07-26 11:40] VITALS: BP 80/49
[2017-07-26] MEDS: LINEZOLID 600MG/300ML 300 ML IV SCH (11:51)
[2017-07-26] MEDS: NYSTATIN TOPICAL POWDER 15GM TOP SCH (11:57)
[2017-07-26 13:22] LABS: Blood COHb 0.3 % (0.5-1.5); Blood MetHb 0.4 % (0.0-1.5); HCO3 6.4 mmol/L (22-26.0); MODE NASAL CANNULA; O2Hb 94.3 % (94.0-97.0); PCO2 25.4 mmHg (35.0-45.0); PCO2(T) 25.4 mmHg (35.0-45.0); PO2 96.4 mmHg (80.0-100.0); PO2(T) 96.4 mmHg (80.0-100.0); Room 1015-ERT; Sample Type Arterial; pH 7.017 (7.350-7.450)
[2017-07-26] MEDS: POTASSIUM CHL 20 Meq TABLET PO SCH (13:45)
[2017-07-26] MEDS ORDERED: HYDROmorphone HCL 2 MG/ML VL IV ONE (15:00)
[2017-07-26] MEDS ORDERED: VANCOMYCIN PER PHARMACY 0 MG IV SCH (15:00)
[2017-07-26] MEDS ORDERED: MORPHINE SULF INJ 2 MG/ML SYRINGE 1ML ONE (15:24)
[2017-07-26] MEDS ORDERED: MORPHINE SULF INJ 2 MG/ML SYRINGE 1ML IV PRN ×2 (15:30→16:00)
[2017-07-26] MEDS ORDERED: EPINEPHrine HCL INJECTION 4 MG in SODIUM CHL 0.9% 250 ML IV SCH (16:00)
[2017-07-26] MEDS ORDERED: D5W IV SCH (16:00)
[2017-07-26] MEDS ORDERED: SODIUM BICARBONATE IV SCH (16:00)
[2017-07-26] MEDS ORDERED: VANCOMYCIN 1GM/250ML 250 ML IV ONE (16:00)
[2017-07-26] MEDS ORDERED: EPINEPHrine HCL INJECTION 4 MG in D5W 5% 250 ML IV SCH (16:15)
[2017-07-26] MEDS ORDERED: MIDAZOLAM DRIP 50 mg/50mL 50 ML IV SCH (16:27)
[2017-07-26] MEDS ORDERED: ETOMIDATE (2MG/ML) 20ML VIAL IV ONE ×2 (16:28→16:30)
[2017-07-26] MEDS ORDERED: SUCCINYLCHOLINE CHLORIDE 20 MG/ML 10ML VIAL IV ONE (16:29)
[2017-07-26 17:45] LABS: Hemoglobin 8.4 g/dL (12.2-16.2)
[2017-07-26 18:00] VITALS: BP 84/21
[2017-07-26] MEDS ORDERED: VASOPRESSIN 50 UNITS in D5W 5% 247.5 ML IV SCH (18:00)
[2017-07-26 19:42] LABS: Allen Test Yes; Base Excess -31.5 mmol/L (-2.0-2.0); Blood 02Sat 95.9 % (96-100); Blood COHb 0.3 % (0.5-1.5); Blood MetHb 0.4 % (0.0-1.5); HHb 4.1 % (0.0-5.0); MODE VENT - A/C; O2Hb 95.2 % (94.0-97.0); PCO2 23.9 mmHg (35.0-45.0); PCO2(T) 23.9 mmHg (35.0-45.0); PO2 122.5 mmHg (80.0-100.0); PO2(T) 122.5 mmHg (80.0-100.0); Room 1015-ERT; Sample Type Arterial; pH 6.713 (7.350-7.450)
[2017-07-26 20:00] VITALS: BP 146/89
[2017-07-26 20:55] VITALS: BP 145/70
[2017-07-26] MEDS ORDERED: DOPamine 1600MCG/ML D5W 250 ML IV ONE (21:09)
[2017-07-26 21:15] VITALS: BP 156/111
[2017-07-26] MEDS ORDERED: CALCIUM CHLOR(10%) 100MG/ML 10ML SYRINGE IV ONE (21:34)
[2017-07-26] MEDS ORDERED: SODIUM BICARBONATE 8.4% INJ 50ML SYRINGE IV ONE (21:34)
[2017-07-26] MEDS ORDERED: EPINEPHrine HCL 1 MG/10 ML SYRG IV ONE (21:34)
[2017-07-26] MEDS ORDERED: ALBUMIN 25% 100 ML IV SCH (22:00)
[2017-07-27] MEDS ORDERED: ALBUMIN 25% 100 ML IV SCH (06:00)
== END 2017-07-26 21:35 | disposition expired | DRG 871 ==
LOC: EDBD 11:40 → ER 11:40 → TELE 11:41 → ICU WEST 07-26 19:52
PROVIDERS: ADMIT Nurse Practitioner Family; ATTEND Family Medicine
PROC: 30233N1 Transfusion of Nonautologous Red Blood Cells into Peripheral Vein, Percutaneous Approach (ICD-10-PCS; principal; 2017-07-21)
PROC: 02H633Z Insertion of Infusion Device into Right Atrium, Percutaneous Approach (ICD-10-PCS; 2017-07-21)
PROC: 5A1935Z Respiratory Ventilation, Less than 24 Consecutive Hours (ICD-10-PCS; 2017-07-26)
PROC: 6A550Z2 Pheresis of Platelets, Single (ICD-10-PCS; 2017-07-26)
PROC: 0BH17EZ Insertion of Endotracheal Airway into Trachea, Via Natural or Artificial Opening (ICD-10-PCS; 2017-07-26)
DX: A41.9 Sepsis, unspecified organism (principal); L89.154 Pressure ulcer of sacral region, stage 4; N17.0 Acute kidney failure with tubular necrosis; J96.90 Respiratory failure, unspecified, unspecified whether with hypoxia or hypercapnia; G93.41 Metabolic encephalopathy; E43 Unspecified severe protein-calorie malnutrition; D68.59 Other primary thrombophilia; N18.4 Chronic kidney disease, stage 4 (severe); N39.0 Urinary tract infection, site not specified; E87.1 Hypo-osmolality and hyponatremia; G82.20 Paraplegia, unspecified; Q60.0 Renal agenesis, unilateral; Z68.43 Body mass index [BMI] 50.0-59.9, adult; E11.21 Type 2 diabetes mellitus with diabetic nephropathy; R65.20 Severe sepsis without septic shock; D63.8 Anemia in other chronic diseases classified elsewhere; E83.51 Hypocalcemia; E83.42 Hypomagnesemia; E87.6 Hypokalemia; E83.39 Other disorders of phosphorus metabolism; E03.9 Hypothyroidism, unspecified; E11.22 Type 2 diabetes mellitus with diabetic chronic kidney disease; E21.3 Hyperparathyroidism, unspecified; E55.9 Vitamin D deficiency, unspecified; E66.01 Morbid (severe) obesity due to excess calories; E86.0 Dehydration; I12.9 Hypertensive chronic kidney disease with stage 1 through stage 4 chronic kidney disease, or unspecified chronic kidney disease; I44.7 Left bundle-branch block, unspecified; Q05.9 Spina bifida, unspecified; Z82.49 Family history of ischemic heart disease and other diseases of the circulatory system; Z83.3 Family history of diabetes mellitus; Z87.440 Personal history of urinary (tract) infections; Z93.3 Colostomy status; Z99.2 Dependence on renal dialysis; Z93.2 Ileostomy status
CPT/HCPCS: 36415; 36600; 71010; 76775; 80048; 80053; 81001; 82306; 82570; 82728; 82805; 82962; 83036; 83540; 83550; 83605; 83690; 83735; 83880; 83970; 84100; 84300; 84443; 84484; 84550; 85007; 85014; 85018; 85025; 85027; 85610; 85730; 86850; 86900; 86901; 86920; 87040; 87070; 87077; 87086; 87088; 87186; 87205; 93005; 93306; 96365; 96375; C9113; J0171; J0330; J0610; J1815; J2001; J2185; J2250; J2405; J3490; J7060